=== PATIENT | male | born 1945 | race Caucasian/White ===

== ENCOUNTER 2017-10-24 09:05 | Day surgery (SDC) | payer BC ==
[~2017-10-24] VITALS: Ht 175.3 cm; Wt 106.4 kg
[2017-10-24] MEDS ORDERED: GLUCOPHAGE XR500 M1 PO (09:28)
[2017-10-24] MEDS ORDERED: PROTONIX 40MG T40 MG PO (09:29)
[2017-10-24] MEDS ORDERED: REGLAN 10MG10 MG/TAB PO (09:29)
[2017-10-24] MEDS ORDERED: PLAVIX 75MG TAB75 MG PO (09:30)
[2017-10-24] MEDS ORDERED: NITROSTAT0.4 MG/TAB SL (09:31)
[2017-10-24] MEDS ORDERED: CARAFATE 1GM1 G PO (09:32)
[2017-10-24] MEDS ORDERED: CRESTOR40 MG PO (09:32)
[2017-10-24] MEDS ORDERED: PRINIVIL40 MG PO (09:33)
[2017-10-24] MEDS ORDERED: TENORMIN 5050 MG/TAB PO (09:33)
[2017-10-24] MEDS ORDERED: TIMOLOL MALEATE5 M1 OU (09:34)
[2017-10-24] MEDS ORDERED: ASPIRIN 81M81 MG/TA2 PO (09:35)
[2017-10-24 09:56] VITALS: BP 140/72; PULSE 60
[2017-10-24 10:55] VITALS: BP 132/72; PULSE 63; TEMP 97.6
[2017-10-24 11:10] VITALS: BP 121/69; PULSE 65
[2017-10-24 11:25] VITALS: BP 131/71; PULSE 69
[2017-10-24 17:33] VITALS: BP 128/79; PULSE 63
== END 2017-10-24 11:35 | disposition home or self-care (01) ==
LOC: SDCO 09:05
DX: K21.0 Gastro-esophageal reflux disease with esophagitis (principal); K44.9 Diaphragmatic hernia without obstruction or gangrene; K29.30 Chronic superficial gastritis without bleeding; E11.9 Type 2 diabetes mellitus without complications; Z79.84 Long term (current) use of oral hypoglycemic drugs; Z79.01 Long term (current) use of anticoagulants; Z88.8 Allergy status to other drugs, medicaments and biological substances; Z91.040 Latex allergy status; Z95.5 Presence of coronary angioplasty implant and graft
CPT/HCPCS: J2704; J7030